=== PATIENT | female | born 1965 | race Caucasian/White ===

== ENCOUNTER 2017-03-07 21:41 | Inpatient (IN) | payer OTHER, BC ==
[~2017-03-07 21:41] MED LIST: ceFAZolin 1,000 MG in SODIUM CHLORIDE 0.9% 1,000 ML IRRIGATION ONE
[2017-03-07] MEDS ORDERED: DIPH,PERTUS(ACELL)TETVAC-LF 0.5 ML VIAL IM ONE (21:49)
[2017-03-07] MEDS ORDERED: HYDROmorphone 1 MG/ML 1 ML SYRINGE IVP STA (21:49)
[2017-03-07] MEDS ORDERED: RX INFO: IV CONTRAST WAS GIVEN 1 EACH MISC MISCELLANE PRN (21:49)
[2017-03-07] MEDS ORDERED: ceFAZolin 1,000 MG in DEXTROSE/WATER 1 50ML.BAG IVPB STA (21:49)
[2017-03-07] MEDS ORDERED: SODIUM CHLORIDE 0.9% 1,000 ML IV STA (21:49)
[2017-03-07 21:56] LABS: Glucose,Whole Blood 97 mg/dL (75-99)
[2017-03-07] MEDS ORDERED: ONDANSETRON 4 MG/2 ML VIAL IVP STA (22:04)
[2017-03-07 22:09] LABS: Aty Lym Flag Slight; Basophils # (A) 0.1 k/uL (0-0.2); Basophils % (A) 1 %; CH 32.9; CHCM 33.6; Eosinophils # (A) 0.2 k/uL (0-0.7); Eosinophils % (A) 2 %; HCT 33.3 % (34.0-46.0); HDW 2.02; HGB 11.2 gm/dL (11.4-16.0); Luc % (Auto) 5; Lymphocytes # (A) 2.9 k/uL (1.0-4.8); Lymphocytes % (A) 36 %; MCH 33.1 pg (25.0-35.0); MCHC 33.7 g/dL (31.0-37.0); MCV 98.2 fL (80.0-100.0); Monocytes # (A) 0.5 k/uL (0-1.0); Monocytes % (A) 6 %; Neutrophils # (A) 3.9 k/uL (1.3-7.7); Neutrophils % (A) 49 %; RBC 3.39 m/uL (3.80-5.40); RDW 14.7 % (11.5-15.5); WBC 7.9 k/uL (3.8-10.6); WBC (Perox) 7.89
[2017-03-07 22:18] LABS: ALT 74 U/L (9-52); AST 58 U/L (14-36); Alkaline Phosphatase 38 U/L (38-126); Amylase 138 U/L (30-110); Anion Gap 15 mmol/L; Blood Urea Nitrogen 9 mg/dL (7-17); Carbon Dioxide 21 mmol/L (22-30); Chloride 103 mmol/L (98-107); Glucose 93 mg/dL (74-99); Non-African American GFR(MDRD) >60 (>60 ml/min/1.73 sqM); Potassium 3.6 mmol/L (3.5-5.1); Prothrombin Time 9.8 sec (9.0-12.0); Sodium 139 mmol/L (137-145); Total Bilirubin 0.4 mg/dL (0.2-1.3); Total Protein 6.9 g/dL (6.3-8.2)
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
[2017-03-07 22:25] LABS: Alcohol 292 mg/dL
[2017-03-07 22:28] LABS: Partial Thromboplastin Time 19.4 sec (22.0-30.0)
--- NOTE | 2017-03-07 22:28 | XR ---
EXAM: XR Chest, 1 View CLINICAL HISTORY: Reason: trauma TECHNIQUE: Frontal view of the chest. COMPARISON: No relevant prior studies available. FINDINGS: Lungs: Lungs are clear. Pleural space: No evidence of pneumothorax. No significant pleural effusion although right costophrenic angle not entirely included on current examination. Heart: Heart size is within normal limits. Mediastinum: Mediastinal structures are unremarkable. Bones/joints: Imaged bony thorax is unremarkable except for old partially imaged lateral right seventh rib fracture. Lateral right lower bony thorax not included on current examination. IMPRESSION: No evidence of acute cardiopulmonary disease.
[2017-03-07 22:29] LABS: Creatine Kinase 166 U/L (30-135)
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
[2017-03-07 22:35] LABS: Manual Review Performed
--- NOTE | 2017-03-07 22:39 | XR ---
EXAM: XR Right Wrist, 2 Views CLINICAL HISTORY: Reason: Pain TECHNIQUE: Frontal and lateral views of the right wrist-portable AP and lateral wrist radiographs COMPARISON: No relevant prior studies available. FINDINGS: Bones/joints: Comminuted fracture traverses the distal radial metaphysis with complete dorsal dislocation of the distal radial fracture fragment and associated carpus which is dorsally located and proximally displaced overlapping the distal radius and ulna. Distal ulna appears intact. Soft tissues: Extensive soft tissue swelling about the distal forearm and wrist with soft tissue gas likely related to laceration about this region. No definite radiopaque foreign bodies identified. IMPRESSION: Extensive soft tissue swelling about the distal forearm and wrist with soft tissue gas likely related to penetrating injury/laceration. Distal radial fracture with severe complete dorsal dislocation and proximal overlapping of the distal radial fracture fragment and carpus.
[2017-03-07 22:42] LABS: Creatine Kinase MB 1.9 ng/mL (0.0-2.4); Troponin I <0.012 ng/mL (0.000-0.034)
[2017-03-07 23:18] LABS: Appearance,Urine Clear (Clear); Bilirubin,Urine Negative (Negative); Glucose,Urine (UA) Negative (Negative); Ketones,Urine Negative (Negative); Leukocyte Esterase,Urine Negative (Negative); Nitrite,Urine Negative (Negative); PH, Urine 5.5 (5.0-8.0); Protein,Urine Trace (Negative); Specific Gravity,Urine 1.017 (1.001-1.035); UA Billing (MACRO vs. MICRO) CHEM; Urobilinogen,Urine <2.0 mg/dL (<2.0)
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
[2017-03-07] MEDS ORDERED: MORPHINE SULFATE 2 MG/ML SYRINGE IV PRN ×2 (23:24)
[2017-03-07] MEDS ORDERED: SUCCINYLCHOLINE CHLORIDE 100 MG/5 ML SYR IV ONE (23:25)
[2017-03-07] MEDS ORDERED: PROPOFOL 10 MG/ML 20 ML VIAL IV ONE (23:25)
[2017-03-07] MEDS ORDERED: MIDAZOLAM 2 MG/2 ML VIAL ONE (23:25)
[2017-03-07] MEDS ORDERED: fentaNYL (PF) 50 MCG/ML 2 ML AMP ONE (23:25)
[2017-03-07] MEDS ORDERED: IV FLUID CONTINUATION 700 ML IV ONE (23:25)
[2017-03-07] MEDS ORDERED: LIDOCAINE 1% INJ 10MG/ML (20 ML MDV) ONE (23:25)
[2017-03-07] MEDS ORDERED: HYDROcodone/APAP 7.5-325MG 1 EACH TAB PO PRN (23:29)
--- NOTE | 2017-03-07 23:36 | CT ---
EXAM: CT Head Without Intravenous Contrast CLINICAL HISTORY: Reason: trauma TECHNIQUE: Axial computed tomography images of the head/brain without intravenous contrast. CTDI is 57.4 mGy and DLP is 1202.1 mGy-cm. This CT exam was performed using one or more of the following dose reduction techniques: automated exposure control, adjustment of the mA and/or kV according to patient size, and/or use of iterative reconstruction technique. COMPARISON: No relevant prior studies available. FINDINGS: Brain: Mild cerebral atrophy. No evidence of acute cerebral infarction or intracranial hemorrhage. No abnormal extra-axial collections identified. No edema. Ventricles: Ventricles are of normal configuration without mass effect or midline shift. Bones/joints: No evidence of skull fracture. Soft tissues: Unremarkable. Sinuses: Imaged paranasal and mastoid sinuses are clear. Mastoid air cells: See above. IMPRESSION: Mild cerebral atrophy. No evidence of acute intracranial abnormality. EXAM: CT Cervical Spine Without Intravenous Contrast CLINICAL HISTORY: Reason: trauma TECHNIQUE: Axial computed tomography images of the cervical spine without intravenous contrast. CTDI is 14.6 mGy and DLP is 385.3 mGy-cm. This CT exam was performed using one or more of the following dose reduction techniques: automated exposure control, adjustment of the mA and/or kV according to patient size, and/or use of iterative reconstruction technique. COMPARISON: No relevant prior studies available. FINDINGS: Vertebrae: Straightening of the normal cervical lordosis and minimal C4-5 anterolisthesis of approximately 2 mm. Cervical vertebral body height and alignment are otherwise within normal limits. No evidence of acute cervical fracture or dislocation. Multilevel cervical disc disease and spondylosis, most prominent at the C5-6 level. Mild facet joint arthropathy. Discs/spinal canal/neural foramina: No significant osseous cervical spinal stenosis. Soft tissues: Prevertebral soft tissues are unremarkable. Lung apices: Biapical pleural parenchymal scarring. No evidence of pneumothorax. IMPRESSION: Straightening of the normal cervical lordosis with minimal C4-5 anterolisthesis. No evidence of acute cervical fracture or dislocation.
[2017-03-07] MEDS ORDERED: LACTATED RINGERS 1,000 ML IV ONE (23:56)
--- NOTE | 2017-03-08 00:13 | CT ---
EXAM: CT Chest With Intravenous Contrast CLINICAL HISTORY: Reason: trauma TECHNIQUE: Axial computed tomography images of the chest with intravenous contrast. CTDI is 7.7 mGy and DLP is 541.4 mGy-cm. This CT exam was performed using one or more of the following dose reduction techniques: automated exposure control, adjustment of the mA and/or kV according to patient size, and/or use of iterative reconstruction technique. COMPARISON: No relevant prior studies available. FINDINGS: Lungs: Biapical opacities most suggestive of pleural-parenchymal scarring. Mild biapical bullous changes. No focal pulmonary infiltrates or consolidations to suggest pulmonary contusion. Mild bibasilar dependent atelectasis. Approximately 8 mm noncalcified superior segment right lower lobe noncalcified pulmonary nodule which is of indeterminate etiology. Pleural space: No evidence of pneumothorax or pleural effusion. Heart: Heart size is mildly enlarged. No significant pericardial effusion. Mediastinum: Mediastinal structures are otherwise unremarkable. Bones/joints: No acute thoracic bony abnormalities identified. Soft tissues: Unremarkable. Vasculature: Aneurysmal dilatation of the ascending thoracic aorta measuring 4.5 cm in maximum AP diameter. No evidence of thoracic aortic dissection. No periaortic hemorrhage or hematoma to suggest thoracic aortic vascular injury. Lymph nodes: No evidence of mediastinal or hilar pathologically enlarged lymphadenopathy. IMPRESSION: No evidence of acute cardiopulmonary disease. 4.5 cm ascending thoracic aortic aneurysm. No evidence of thoracic aortic dissection or periaortic hemorrhage. Approximately 8mm right lower lobe pulmonary nodule which is of indeterminate etiology. Follow-up PET/CT scan recommended. EXAM: CT Abdomen and Pelvis With Intravenous Contrast CLINICAL HISTORY: Reason: trauma TECHNIQUE: Axial computed tomography images of the abdomen and pelvis with intravenous contrast. CTDI is some 0.7 mGy and DLP is 541.4 mGy-cm. This CT exam was performed using one or more of the following dose reduction techniques: automated exposure control, adjustment of the mA and/or kV according to patient size, and/or use of iterative reconstruction technique. COMPARISON: No relevant prior studies available. FINDINGS: Lower thorax: No acute findings. ABDOMEN: Liver: Liver is unremarkable. Gallbladder and bile ducts: Unremarkable. No calcified stones. No ductal dilation. Pancreas: Pancreas is unremarkable Spleen: Spleen is unremarkable. Adrenals: No adrenal masses Kidneys and ureters: Lateral renal enhancement with no evidence of renal laceration or perinephric fluid. No evidence of hydronephrosis. Stomach and bowel: No evidence of bowel obstruction or pneumoperitoneum. Appendix: Appendix not identified. PELVIS: Bladder: Small amount of gas within urinary bladder likely related to recent bladder catheterization. Clinical correlation recommended. Reproductive: Uterus is enlarged with heterogeneous density raising possibility of leiomyomatous uterus. ABDOMEN and PELVIS: Intraperitoneal space: No abnormal fluid collections. No evidence of free intraperitoneal fluid/hemoperitoneum. Bones/joints: No acute bony abnormalities identified. Soft tissues: Small fat-containing umbilical hernia. Vasculature: Abdominal aorta is of normal caliber. No abdominal aortic aneurysm. Lymph nodes: No abnormal masses or adenopathy. IMPRESSION: No evidence of acute abdominal-pelvic disease. No evidence of visceral organ injury. Enlarged uterus with heterogeneous density raising possibility of leiomyomatous uterus. Small amount of urinary bladder gas which may be related to recent bladder catheterization. Clinical correlation recommended.
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
[2017-03-08] MEDS: MORPHINE SULFATE 4 MG/ML SYRINGE IVP ONE ×4 (00:55→01:10)
[2017-03-08] MEDS ORDERED: ONDANSETRON 4 MG/2 ML VIAL IVP ONE (01:02)
[2017-03-08 01:51] VITALS: BMI 21.1
[2017-03-08] MEDS ORDERED: HYDROcodone/APAP 7.5-325MG 1 EACH TAB PO PRN (03:43)
[2017-03-08] MEDS: HYDROmorphone 1 MG/ML 1 ML SYRINGE IVP PRN ×2 (04:04→05:50)
[2017-03-08] MEDS: HYDROcodone/APAP 7.5-325MG 1 EACH TAB PO PRN ×3 (07:32→16:03)
[2017-03-08] MEDS: ONDANSETRON 4 MG/2 ML VIAL IVP PRN ×3 (07:32→19:17)
--- NOTE | 2017-03-08 08:22 | FL ---
EXAMINATION TYPE: FL guidance operating room DATE OF EXAM: 03/08/2017 HISTORY: Flouroscopy time 9 seconds of fluoroscopy provided. IMPRESSION: 1. Fluoroscopy time.
[2017-03-08] MEDS: traMADol 50 MG TAB PO SCH ×4 (08:28→22:21)
--- NOTE | 2017-03-08 08:28 | XR ---
EXAMINATION TYPE: XR wrist limited RT DATE OF EXAM: 03/08/2017 COMPARISON: 03/07/2017 HISTORY: Intraoperative x-ray TECHNIQUE: 2 view submitted FINDINGS: Surgical change appears in near anatomic alignment. Previous fracture noted. Cannot exclude scaphoid injury on the limited images provided. IMPRESSION: Surgical change appears in near anatomic alignment
[2017-03-08 09:39] LABS: Glucose,Whole Blood 84 mg/dL (75-99)
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
[2017-03-08] MEDS: LORazepam 2 MG/ML SYRINGE IV PRN ×2 (10:13→22:22)
[2017-03-08] MEDS: ceFAZolin 2 GM in SODIUM CHLORIDE 0.9% 100 ML IVPB SCH ×2 (10:14→16:04)
[2017-03-08 12:09] LABS: Glucose,Whole Blood 81 mg/dL (75-99)
[2017-03-08] MEDS ORDERED: HYDROcodone/APAP 10-325MG 1 EACH TAB PO PRN (17:15)
[2017-03-08] MEDS: HYDROcodone/APAP 10-325MG 1 EACH TAB PO PRN ×2 (19:15→19:40)
[2017-03-09] MEDS: ONDANSETRON 4 MG/2 ML VIAL IVP PRN ×2 (00:36→08:00)
[2017-03-09] MEDS: HYDROcodone/APAP 10-325MG 1 EACH TAB PO PRN ×2 (00:38→07:52)
[2017-03-09 08:15] VITALS: BP 149/86; PULSE 63; RESP 20; TEMP 97.7
[2017-03-09] MEDS: traMADol 50 MG TAB PO SCH (09:03)
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
== END 2017-03-09 11:40 | disposition home or self-care (01) | DRG 511 ==
LOC: EC 21:41 → 3SUR 23:18 → 5MS5E 03-08 20:01
PROVIDERS: ADMIT Orthopaedic Surgery; ATTEND Orthopaedic Surgery
PROC: 03QB0ZZ Repair Right Radial Artery, Open Approach (ICD-10-PCS; principal; 2017-03-07 23:00)
PROC: 0PSH0ZZ Reposition Right Radius, Open Approach (ICD-10-PCS; principal; 2017-03-07 23:00)
DX: S52.91XB Unspecified fracture of right forearm, initial encounter for open fracture type I or II (principal); S55.111A Laceration of radial artery at forearm level, right arm, initial encounter; I10 Essential (primary) hypertension; F10.129 Alcohol abuse with intoxication, unspecified; R11.2 Nausea with vomiting, unspecified; Z88.5 Allergy status to narcotic agent; V86.59XA Driver of other special all-terrain or other off-road motor vehicle injured in nontraffic accident, initial encounter; Y92.9 Unspecified place or not applicable
CPT/HCPCS: 29125; 36415; 70450; 71010; 71260; 72125; 72170; 74177; 80053; 80306; 80320; 81003; 81025; 82150; 82550; 82553; 83605; 83690; 84484; 85025; 85610; 85730; 86850; 86900; 86901; 90471; 90715; 96361; 96374; 96375; 99285